=== PATIENT | female | born 2000 ===

== ENCOUNTER 2019-01-11 19:24 | Emergency (ER) | payer OTHER ==
[2019-01-11] MEDS ORDERED: Ibuprofen TAB* 600 MG PO ONE (19:42)
[2019-01-11 19:47] VITALS: BP 118/61
--- NOTE | 2019-01-11 20:19 | UC ---
Lower Extremity/Ankle HPI - HPI Summary HPI Summary: 18-year-old female presents with complaints of right foot pain. States that around 5:00 this afternoon she was walking and stepped into a dip in the ground that caused her to fall and injure the foot. She is unsure of the exact mechanism of injury but believes that she twisted the foot when she fell. Reports pain, bruising, and swelling to the dorsal aspect of her foot. She was able to walk and bear weight immediately after the injury as well as in the clinic. Denies any numbness or tingling. - History of Current Complaint Chief Complaint: UCLowerExtremity Stated Complaint: R FOOT INJURY Time Seen by Provider: 01/11/19 19:58 Hx Obtained From: Patient Hx Last Menstrual Period: 12/15/18 Pain Intensity: 6 - Allergies/Home Medications Allergies/Adverse Reactions: Allergies Allergy/AdvReac Type Severity Reaction Status Date / Time No Known Allergies Allergy Verified 01/11/19 19:46 Home Medications: Home Medications NK [No Home Medications Reported] 01/11/19 [History Confirmed 01/11/19] PMH/Surg Hx/FS Hx/Imm Hx Previously Healthy: Yes - Denies significant PMH - Surgical History Surgical History: Yes Surgery Procedure, Year, and Place: hammertoe on left foot - Family History Known Family History: Positive: Non-Contributory - Social History Occupation: Student Lives: Dormitory/Roommates Alcohol Use: None Substance Use Type: None Smoking Status (MU): Never Smoked Tobacco Review of Systems All Other Systems Reviewed And Are Negative: Yes Constitutional: Positive: Negative Skin: Positive: Bruising Respiratory: Positive: Negative Cardiovascular: Positive: Negative Gastrointestinal: Positive: Negative Genitourinary: Positive: Negative Motor: Negative: Weakness Neurovascular: Negative: Decreased Sensation Musculoskeletal: Positive: Other: - See HPI Neurological: Positive: Negative Is Patient Immunocompromised?: No Physical Exam - Summary Physical Exam Summary: GENERAL APPEARANCE: Well developed, well nourished, alert and cooperative, and appears to be in no acute distress. CARDIAC: Normal S1 and S2. No S3, S4 or murmurs. Rhythm is regular. There is no peripheral edema, cyanosis or pallor. Extremities are warm and well perfused. Capillary refill is less than 2 seconds. Peripheral pulses intact. LUNGS: Clear to auscultation without rales, rhonchi, wheezing or diminished breath sounds. ABDOMEN: Positive bowel sounds. Soft, nondistended, nontender. No guarding or rebound. No masses or hepatosplenomegally. MUSKULOSKELETAL: Normal muscular development. Limping gait. EXTREMITIES: Tenderness with mild ecchymosis and edema to the mid right dorsal foot without gross deformity. Circulation and sensation intact. SKIN: Skin normal color, texture and turgor. Triage Information Reviewed: Yes Vital Signs: Initial Vital Signs Temp 99.4 F 01/11/19 19:41 Pulse 77 01/11/19 19:41 Resp 16 01/11/19 19:41 BP 118/61 01/11/19 19:41 Pulse Ox 99 01/11/19 19:41 Vital Signs Reviewed: Yes Lower Extremity Course/Dx - Course Course Of Treatment: 18-year-old female presents with complaints of right foot pain. States that around 5:00 this afternoon she was walking and stepped into a dip in the ground that caused her to fall and injure the foot. She is unsure of the exact mechanism of injury but believes that she twisted the foot when she fell. Reports pain, bruising, and swelling to the dorsal aspect of her foot. She was able to walk and bear weight immediately after the injury as well as in the clinic. Denies any numbness or tingling. Afebrile. Vital signs stable. Exam was remarkable for tenderness with mild ecchymosis and edema to the mid right dorsal foot without gross deformity. Circulation and sensation intact. X-ray showed no acute fracture or dislocation. Recommending conservative treatment for a right foot sprain. Patient was placed in an Hao wrap and postop shoe for support. She is to use [id number] analgesics as needed for pain as well as RICE. She is to follow-up with orthopedic surgery in 7 days if symptoms do not improve. Anticipatory guidance and warning symptoms were reviewed with the patient. Verbalizes understanding and agrees with plan of care. - Differential Dx/Diagnosis Differential Diagnosis/HQI/PQRI: Contusion, Dislocation, Fracture (Closed), Sprain Provider Diagnosis: Right foot sprain Discharge - Sign-Out/Discharge Documenting (check all that apply): Patient Departure All imaging exams completed and their final reports reviewed: No - Discharge Plan Condition: Stable Disposition: HOME Patient Education Materials: Foot Sprain (ED) Referrals: [facility]Primary Care Provider[facility] - Patty Kennedy MD [Medical Doctor] - 7 Days (If no improvement in symptoms. Call for an appointment.) Additional Instructions: The x-ray performed in the clinic today showed no evidence of a fracture. I suspect that you sprained your foot. The x-ray will be reviewed by the radiologist tomorrow and we will contact you if they see anything that would change her plan of care. Rest the foot as much as possible. You may continue to walk and bear weight as tolerated however you should avoid any strenuous activity such as running or jumping until you are pain free. Use the postop shoe that was provided to you in the clinic until you are pain free. Apply ice to the affected area for 15-20 minutes at least 4 times a day to help with pain and swelling. Wear the Hao wrap for the next couple of days to help minimize the swelling. Keep the foot elevated while sitting to help reduce swelling. Take acetaminophen (Tylenol) or ibuprofen (Advil, Motrin) according to directions as needed for pain. Follow-up with orthopedic surgery in 7 days if symptoms are not improving. Call for an appointment. Seek immediate medical attention in the emergency room if you have severe pain that is not managed with pain medication, you are unable to walk or bear weight , he developed numbness or tingling in the foot or toes, or have any worsening of symptoms. - Billing Disposition and Condition Condition: STABLE Disposition: Home
--- NOTE | 2019-01-12 14:21 | UC ---
- Progress Note Progress Note: XR: IMPRESSION: NO EVIDENCE FOR FRACTURE, IF THE PATIENT'S SYMPTOMS PERSIST RECOMMEND FOLLOW-UP IMAGING. No change in plan of care Course/Dx - Diagnoses Provider Diagnoses: Right foot sprain Discharge - Sign-Out/Discharge Documenting (check all that apply): Post-Discharge Follow Up All imaging exams completed and their final reports reviewed: Yes - Discharge Plan Condition: Stable Disposition: HOME Patient Education Materials: Foot Sprain (ED) Referrals: [facility] [Primary Care Provider] - Patty Kennedy MD [Medical Doctor] - 7 Days (If no improvement in symptoms. Call for an appointment.) Additional Instructions: The x-ray performed in the clinic today showed no evidence of a fracture. I suspect that you sprained your foot. The x-ray will be reviewed by the radiologist tomorrow and we will contact you if they see anything that would change her plan of care. Rest the foot as much as possible. You may continue to walk and bear weight as tolerated however you should avoid any strenuous activity such as running or jumping until you are pain free. Use the postop shoe that was provided to you in the clinic until you are pain free. Apply ice to the affected area for 15-20 minutes at least 4 times a day to help with pain and swelling. Wear the Hao wrap for the next couple of days to help minimize the swelling. Keep the foot elevated while sitting to help reduce swelling. Take acetaminophen (Tylenol) or ibuprofen (Advil, Motrin) according to directions as needed for pain. Follow-up with orthopedic surgery in 7 days if symptoms are not improving. Call for an appointment. Seek immediate medical attention in the emergency room if you have severe pain that is not managed with pain medication, you are unable to walk or bear weight , he developed numbness or tingling in the foot or toes, or have any worsening of symptoms. - Billing Disposition and Condition Condition: STABLE Disposition: Home
== END 2019-01-11 20:40 | disposition home or self-care (01) ==
LOC: UCEAST 19:24
DX: S93.601A Unspecified sprain of right foot, initial encounter (principal); W17.2XXA Fall into hole, initial encounter; Y93.01 Activity, walking, marching and hiking; Y92.9 Unspecified place or not applicable
CPT/HCPCS: 99202; A9270-GY; G0463